=== PATIENT | male | born 1945 | race Caucasian/White ===

== ENCOUNTER 2017-01-05 17:47 | Emergency (ER) | payer MEDICARE ==
--- NOTE | 2017-01-05 18:07 | ED.PDOC ---
History of Present Illness - General Chief Complaint: Abdominal Pain Stated Complaint: n/v,epigastric pain Time Seen by Provider: 01/05/17 18:07 Information Source: patient Exam Limitations: no limitations - History of Present Illness Initial Comments: Diogenes Read 71 y/o male stated that he had episode of nausea /vomiting last Tuesday and stopped but it started again this morning with several episode of vomiting but no diarrhea and aggravated by food intake;he had also achy abdominal pain today went to see his md but was sent here to be further evaluated.Had bowel movement yesterday. No diarrhea ,fever ,SOB,hematemesis or dysuria Abdominal Pain Onset Location: epigastric Pain Radiation: back Quality: aching, steady Timing/Duration: 7-24 hours Improving Factors: nothing Worsening Factors: eating Associated Symptoms: other - see hpi Review of Systems - Review of Systems Constitutional: States: no symptoms reported EENTM: States: no symptoms reported Respiratory: States: no symptoms reported Cardiology: States: no symptoms reported Gastrointestinal/Abdominal: States: see HPI Genitourinary: States: no symptoms reported Past Medical History (General) - Patient Medical History Hx Congestive Heart Failure: No Hx Hypertension: Yes Hx Diabetes: No Hx Other PMH: Yes - hypercholesterolemia,kidney stone Surgical History: other - ORIF right leg - Vaccination History Hx Influenza Vaccination: Yes Hx Pneumococcal Vaccination: Yes - Social History Hx Tobacco Use: No Family Medical History - Family History Father Family History: Unknown Living Status: Unknown Hx Family Cancer: Yes - dad-Hodgkins lymphoma;mom-ovarian cancer Physical Exam - Physical Exam General Appearance: Alert, Comfortable, No apparent distress, Other - not acutely ill Eyes, Ears, Nose, Throat Exam: PERRL/EOMI, normal ENT inspection, pharynx normal Neck: non-tender, supple Respiratory: chest non-tender, lungs clear, normal breath sounds Cardiovascular/Chest: normal peripheral pulses, regular rate, rhythm, no murmur Peripheral Pulses: No deficit Gastrointestinal/Abdominal: normal bowel sounds, non tender, soft Back Exam: no vertebral tenderness Extremity: non-tender, normal inspection Neurologic: no motor/sensory deficits, alert, normal mood/affect, oriented x 3 Progress - Progress Progress: 01/05/17 20:45 Vital Signs - 8 hr 01/05/17 01/05/17 01/05/17 17:59 19:59 20:44 Temperature 98.7 F Pulse Rate [ 59 L 74 80 Left Brachial] Respiratory 20 18 18 Rate Blood Pressure 176/84 158/86 152/80 [Left Arm] O2 Sat by Pulse 93 L 92 L 93 L Oximetry Laboratory Tests 01/05/17 01/05/17 01/05/17 18:00 18:00 18:00 WBC 18.2 H RBC 5.69 Hgb 17.0 Hct 49.6 MCV 87.2 MCH 29.9 MCHC 34.3 RDW 13.1 Plt Count 267 MPV 8.5 Absolute Neuts (auto) 15.20 H Absolute Lymphs (auto) 1.90 Absolute Monos (auto) 1.00 H Absolute Eos (auto) 0.00 Absolute Basos (auto) 0.10 Neutrophils % 83.6 H Lymphocytes % 10.4 L Monocytes % 5.7 Eosinophils % 0.0 L Basophils % 0.3 Sodium 136 Potassium 3.6 Chloride 99 L Carbon Dioxide 26 Anion Gap 14.6 BUN 21 H Creatinine 0.90 BUN/Creatinine Ratio 23.3 H Random Glucose 115 H Serum Osmolality 275.8 Calcium 9.5 Total Bilirubin 3.4 H* AST 19 ALT 17 Alkaline Phosphatase 77 Troponin I < 0.02 Serum Total Protein 7.2 Albumin 4.4 Globulin 2.8 Albumin/Globulin Ratio 1.6 Lipase 16 L 01/05/17 23:00 No Nausea /vomiting since he was in the [facility] for almost 4 hours - EKG/XRAY/CT EKG: Henrry, Sinus Comments: heart rate-57,LAE,LVH XRAY: chest - atelectasis CT Ordered: Yes - abd/p-bibasilar atelectasis,cholelthiasis,nephrolithiasis Departure - Departure Clinical Impression: Bilateral nephrolithiasis Abdominal pain Qualifiers: Abdominal location: epigastric Qualified Code(s): R10.13 - Epigastric pain Cholelithiasis Qualifiers: Cholelithiasis location: gallbladder Cholecystitis presence: without cholecystitis Biliary obstruction: without biliary obstruction Qualified Code(s) : K80.20 - Calculus of gallbladder without cholecystitis without obstruction Nausea & vomiting Qualifiers: Vomiting type: unspecified Vomiting Intractability: non-intractable Qualified Code(s): R11.2 - Nausea with vomiting, unspecified Time of Disposition: 23:04 Disposition: Discharge to Home or Self Care Condition: Fair Departure Forms: ED Discharge - Pt. Copy, Patient Portal Self Enrollment Instructions: Anatomy of a Gallstone, Kidney Stones (Alternative Therapy), Gallstones (Alternative Therapy), Kidney Stones -- Adult, Gallstones, DI for Kidney Stones, DI for Gallstones, DI for Vomiting -- Adult, Nausea and Vomiting- Adult Diet: low fat, low cholesterol Referrals: Ari Medellin MD [Primary Care Provider] - 1-2 Weeks Prescriptions: Ondansetron Odt [Zofran ODT] 8 mg PO Q8HRS PRN #14 tab PRN Reason: Nausea Ranitidine HCl [Acid Marketing Business Analyst] 150 mg PO BID #60 tab Home Medications: Ambulatory Orders Amlodipine Besylate 10 mg PO 0700 01/05/17 Aspirin [Aspirin Low Dose/Adult] 81 mg PO 0700 01/05/17 Gabapentin 300 mg PO TID 01/05/17 Hydrochlorothiazide 25 mg PO 0700 01/05/17 Losartan Potassium [Cozaar] 100 mg PO 0700 01/05/17 Lovastatin 20 mg PO BEDTIME 01/05/17 Metoprolol Succinate [Metoprolol Succinate ER] 25 mg PO 0700 01/05/17 Ondansetron Odt [Zofran ODT] 8 mg PO Q8HRS PRN #14 tab 01/05/17 Ranitidine HCl [Acid Marketing Business Analyst] 150 mg PO BID #60 tab 01/05/17 Additional Instructions: RETURN TO EMERGENCY ROOM NEEDED;AVOID GREASY SPICY FOODS;Follow up with primary md 01/10/2017 call for appointment
[2017-01-05] MEDS ORDERED: SODIUM CHLORIDE 0.9% 500ML 500 ML IVS ONE ×2 (18:08→20:33)
--- NOTE | 2017-01-05 18:30 | RAD ---
EXAM: Chest,1 View CLINICAL INDICATION: 71-year-old male with pain. TECHNIQUE: Single view, AP portable chest was obtained. COMPARISON: None. FINDINGS: Stable cardiac and mediastinal silhouette. Heart size is top normal. Tortuous thoracic aorta. Low lung volumes with patchy airspace opacification of the RIGHT lower lobe may be secondary to subsegmental atelectasis or consolidation. No gross pneumothoraces or large pleural effusion. Trace pleural effusion cannot be excluded. The visualized bones reveal degenerative change. IMPRESSION: Patchy opacification of the RIGHT lower lobe may be secondary to low lung volumes and subsegmental atelectasis versus consolidation. Please correlate with patient clinical findings and follow-up for resolution.. Electronically signed by: Dixie Posadas MD 01/05/2017 6:29 PM CDT Workstation: [id number]
--- NOTE | 2017-01-05 21:31 | CT ---
EXAM DESCRIPTION: Abdoment/Pelvis w/o Contrast CLINICAL HISTORY: 71 years Male, pain COMPARISON: None. TECHNIQUE: Contiguous axial CT images of the abdomen and pelvis were acquired without administration of intravenous contrast. Coronal and sagittal reformatted images are provided. This exam was performed according to our departmental dose-optimization program which includes use of Automated Exposure Control, adjustment of the mA and/or kV according to patient size and/or use of iterative reconstruction technique. FINDINGS: Chest base: Bibasilar atelectasis. Coronary artery calcifications. Liver: Unremarkable. Gallbladder: Multiple layering gallstones. Spleen: Small calcified granuloma within the spleen. Adrenals: Unremarkable. Pancreas: Unremarkable. Right Kidney: Right upper pole 3.4 cm cystic lesion, slightly high in attenuation measuring 16 Hounsfield units. Left Kidney: Left lower pole nonobstructing renal stone measuring 4 mm. No hydronephrosis. Small renal cyst medially. Aorta and branch vessels: Mild calcific atherosclerosis of the aortoiliac vessels. Lymph nodes: No lymphadenopathy. Bowels: No obstruction. Colon: Scattered colonic diverticula. Appendix: Normal. Peritoneum: No free air or free fluid. Pelvic organs: Mildly enlarged prostate with coarse calcifications. Bladder: The base of the bladder is mildly impressed upon by the prostate. The bladder is otherwise unremarkable. Bones and soft tissues: No acute osseous or soft tissue abnormalities. Right proximal femur prior ORIF. IMPRESSION: 4 mm left lower pole nonobstructing renal stone. Cholelithiasis. Mildly enlarged prostate impressing upon the base of the bladder. Right upper pole 3.4 cm slightly high attenuation cyst or cystic lesion. Consider outpatient ultrasound for further characterization. Electronically signed by: Ari Rankin MD 01/05/2017 9:30 PM CDT
[2017-01-05] MEDS ORDERED: amLODIPine BESYLATE 5 MG TAB PO ONE (22:45)
[2017-01-05] MEDS ORDERED: METOPROLOL SUCCINATE XL 25 MG TAB PO ONE (22:45)
[2017-01-05] MEDS ORDERED: PANTOPRAZOLE INJECTION 80 MG in SODIUM CHLORIDE 0.9% 100ML 80 ML IVPB ONE (22:59)
[2017-01-05] MEDS ORDERED: ONDANSETRON ODT (ER DISP) 8 MG TAB PO ONE (22:59)
[2017-01-05] MEDS ORDERED: LOSARTAN POTASSIUM 25 MG TAB PO ONE (22:59)
[2017-01-05] MEDS ORDERED: PANTOPRAZOLE SODIUM IV 40 MG VIAL ONE (23:04)
[2017-01-05] MEDS ORDERED: SODIUM CHLORIDE 0.9% 100ML 100 ML IVPB ONE (23:04)
[2017-01-05 23:35] VITALS: BP 185/85; TEMP 98.4; O2SAT 91
[2017-01-06] MEDS ORDERED: LOSARTAN POTASSIUM 25 MG TAB PO SCH (09:00)
== END 2017-01-05 23:35 | disposition home or self-care (01) ==
LOC: ER 17:47
DX: K80.20 Calculus of gallbladder without cholecystitis without obstruction (principal); R11.2 Nausea with vomiting, unspecified; J98.11 Atelectasis; I10 Essential (primary) hypertension; N20.0 Calculus of kidney
CPT/HCPCS: 36415; 71010; 74176; 80053; 81001; 83690; 84484; 85025; 93005; J7040; J7050

== ENCOUNTER 2017-04-12 12:59 | Observation (INO) | payer MEDICARE ==
--- NOTE | 2017-04-12 13:16 | ED.PDOC ---
History of Present Illness - General Chief Complaint: GI Problem Stated Complaint: vomiting Time Seen by Provider: 04/12/17 13:09 Source: patient Exam Limitations: no limitations - History of Present Illness Initial Comments: Diogenes Godinez 72 y/o male brought by with nausea vomiting for the last 3 days and unable to take anything latrice.Had 2 episodes of vomiting today with loss of appetite.No diarrhea had normal bm today but still could not get anything down.Had no fever/or chills Timing/Duration: intermittent, other - 3 days Severity: moderate Improving Factors: nothing Worsening Factors: nothing Associated Symptoms: nausea/vomiting - see hpi, other Allergies/Adverse Reactions: Allergies NO KNOWN ALLERGY Allergy (Verified 04/12/17 13:18) Home Medications: Ambulatory Orders Amlodipine Besylate 10 mg PO 0700 01/05/17 Aspirin [Aspirin Low Dose/Adult] 81 mg PO 0700 01/05/17 Gabapentin 300 mg PO TID 01/05/17 Hydrochlorothiazide 25 mg PO 0700 01/05/17 Losartan Potassium [Cozaar] 100 mg PO 0700 01/05/17 Lovastatin 20 mg PO BEDTIME 01/05/17 Metoprolol Succinate [Metoprolol Succinate ER] 25 mg PO 0700 01/05/17 Ondansetron Odt [Zofran ODT] 8 mg PO Q8HRS PRN #14 tab 01/05/17 Ranitidine HCl [Acid Hotel Front Office Manager] 150 mg PO BID #60 tab 01/05/17 Review of Systems - Review of Systems Constitutional: States: no symptoms reported EENTM: States: no symptoms reported Respiratory: States: no symptoms reported Cardiology: States: no symptoms reported Gastrointestinal/Abdominal: States: see HPI, vomiting Genitourinary: States: no symptoms reported Musculoskeletal: States: no symptoms reported Skin: States: no symptoms reported Neurological: States: no symptoms reported All other Systems: Reviewed and Negative, No Change from Baseline Past Medical History (General) - Patient Medical History Hx Hypertension: Yes Hx Other PMH: Yes - cholelithiasis,nephrolithiasis Surgical History: other - orif-right leg - Social History Hx Physical Abuse: No Hx Emotional Abuse: No Hx Suspected Abuse: No - Activities of Daily Living Patient Lives Alone: No - Family Medical History - Family History Mother Family History: Unknown Hx Family Cancer: Yes - dad-hodgkins;mom-ovarian Physical Exam - Physical Exam General Appearance: Alert, Comfortable, No apparent distress Eye Exam: bilateral normal Ears, Nose, Throat: hearing grossly normal, normal ENT inspection, normal pharynx Neck: non-tender, full range of motion, supple Respiratory: chest non-tender, lungs clear, normal breath sounds Cardiovascular/Chest: normal peripheral pulses, regular rate, rhythm, no murmur Gastrointestinal/Abdominal: normal bowel sounds, non tender, soft, no organomegaly Back Exam: normal inspection, no CVA tenderness, no vertebral tenderness Extremity: normal range of motion, non-tender, normal inspection, no pedal edema , no calf tenderness Neurologic: no motor/sensory deficits, alert, normal mood/affect, oriented x 3 Skin Exam: normal color, warm/dry Progress - Progress Progress: 04/12/17 13:41 Last Vital Signs Temp 98.8 F 04/12/17 13:09 Pulse 79 04/12/17 13:09 Resp 18 04/12/17 13:09 BP 152/80 04/12/17 13:09 Pulse Ox 91 L 04/12/17 13:09 - Results/Orders Results/Orders: Laboratory Tests 04/12/17 04/12/17 04/12/17 13:30 13:30 13:48 WBC 13.5 H RBC 5.56 Hgb 16.5 Hct 48.4 MCV 87.2 MCH 29.8 MCHC 34.2 RDW 13.7 Plt Count 254 MPV 9.0 Absolute Neuts (auto) 10.60 H Absolute Lymphs (auto) 1.80 Absolute Monos (auto) 0.90 H Absolute Eos (auto) 0.00 Absolute Basos (auto) 0.10 Neutrophils % 78.9 H Lymphocytes % 13.4 L Monocytes % 6.8 Eosinophils % 0.3 L Basophils % 0.6 PT 11.7 INR 1.040 PTT (SP) 24.6 L Sodium 142 Potassium 3.4 L Chloride 100 L Carbon Dioxide 30 Anion Gap 15.4 BUN 36 H Creatinine 1.18 BUN/Creatinine Ratio 30.5 H Random Glucose 124 H Serum Osmolality 292.9 Calcium 9.6 Magnesium 2.1 Total Bilirubin 3.5 H* Direct Bilirubin 0.4 H Indirect Bilirubin 3.1 H AST 23 ALT 20 Alkaline Phosphatase 77 Creatine Kinase 96 CK-MB (CK-2) 2.3 CK-MB (CK-2) % Not Reportable Troponin I < 0.02 Serum Total Protein 7.0 Albumin 4.1 Lipase 22 Urine Color Yellow Urine Appearance Clear Urine pH 5.0 Ur Specific [place] >= 1.030 Urine Protein 30 Urine Glucose (UA) Negative Urine Ketones Trace Urine Blood Small H Urine Nitrite Negative Urine Bilirubin Moderate Urine Urobilinogen 0.2 Ur Leukocyte Esterase Negative Urine RBC 0 Urine WBC 0 Ur Epithelial Cells 1-3 Urine Bacteria Rare Urine Mucus Moderate - EKG/XRAY/CT Xray Comments: GB SONO-cholelithiasis,steatohepatitis Departure - Departure Clinical Impression: Dehydration Nausea & vomiting Qualifiers: Vomiting type: unspecified Vomiting Intractability: unspecified Qualified Code( s): R11.2 - Nausea with vomiting, unspecified Cholelithiasis Qualifiers: Cholelithiasis location: gallbladder Cholecystitis presence: without cholecystitis Biliary obstruction: without biliary obstruction Qualified Code(s) : K80.20 - Calculus of gallbladder without cholecystitis without obstruction Time of Disposition: 15:26 Disposition: Admit Patient Condition: Good Home Medications: Ambulatory Orders Amlodipine Besylate 10 mg PO 0700 01/05/17 Aspirin [Aspirin Low Dose/Adult] 81 mg PO 0700 01/05/17 Gabapentin 300 mg PO TID 01/05/17 Hydrochlorothiazide 25 mg PO 0700 01/05/17 Losartan Potassium [Cozaar] 100 mg PO 0700 01/05/17 Lovastatin 20 mg PO BEDTIME 01/05/17 Metoprolol Succinate [Metoprolol Succinate ER] 25 mg PO 0700 01/05/17 Ondansetron Odt [Zofran ODT] 8 mg PO Q8HRS PRN #14 tab 01/05/17 Ranitidine HCl [Acid Hotel Front Office Manager] 150 mg PO BID #60 tab 01/05/17 Decision To Admit - Decistion To Admit Decision to Admit Reason: Admit from ER Decision to Admit Date: 04/12/17 - D/W Dr. Vanessa -Hospitalist for admit Decision to Admit Time: 15:26
[2017-04-12] MEDS ORDERED: LACTATED RINGERS 1,000 ML IVS ONE (13:24)
[2017-04-12] MEDS ORDERED: PROMETHAZINE HCL INJ 25 MG/ML VIAL IM ONE (13:26)
--- NOTE | 2017-04-12 14:07 | RAD ---
Study: Single Frontal View of the Chest. Indication:N/V Comparison: January 05, 2017. Impression: Heart size upper limits of normal without failure. Mild basilar atelectasis, otherwise lungs clear. No pneumothorax. No acute osseous abnormality. Electronically signed by: Jeferson Yan MD 04/12/2017 2:05 PM [facility]
--- NOTE | 2017-04-12 14:23 | US ---
Study: Right upper quadrant abdominal ultrasound. Indication: gallstone Technical: Multiplanar, grayscale sonogram of the right upper quadrant of the abdomen obtained. Comparison: CT January 05, 2017. Findings: The liver is diffusely increased in echogenicity consistent with hepatic steatosis. The liver measures 14.9 cm in length. No discrete live mass. Multiple mobile shadowing gallstones measuring up to 6 mm. No gallbladder wall thickening or pericholecystic edema. The common bile duct measures 4.6 mm in diameter. No intrahepatic biliary ductal dilatation. Several right renal cysts noted. The visualized portions of the aorta and inferior vena cava are normal. The pancreas is not optimally characterized secondary to shadowing bowel gas. Impression: Cholelithiasis. Hepatic steatosis. Electronically signed by: Jeferson Yan MD 04/12/2017 2:22 PM [facility]
--- NOTE | 2017-04-12 15:20 | HP ---
HISTORY OF PRESENT ILLNESS: This 72 year-old white male is placed in the hospital from the Emergency Room because of protracted and severe nausea and vomiting with associated dehydration and abdominal pain for the last two days. This apparently is his 4th episode of similar symptoms but one of the worse episodes yet. He has been diagnosed with gallbladder stones in the past, most recently in December of this past year. He has seen Dr. Hargrove in the past for possible removal of the gallbladder but while doing cardiac update in order to rule out any underlying cardiac disease he ran out of an opportunity to have the procedure done which has still been postponed. He admits to fatty food intolerance. A few days ago he was actually eating a fatty [place] food at a [employer] restaurant and had severe discomfort in his upper abdomen. He also describes some discomfort over to the left upper quadrant that appears to be onto a rib joint. This current episode of nausea and vomiting was protracted since two days before and was associated with hiccups that tended to make the symptoms even worse. He was placed in the hospital for IV hydration because of the significant dehydrated state and response of his body to the underlying problem with elevated bilirubin, increased BUN, elevated WBCs as well as a low potassium, probably related to some of his Hydrochlorothiazide medications. PAST MEDICAL HISTORY: 1. Hypertension. 2. Elevated cholesterol. PAST SURGICAL HISTORY: 1. Leg with broken bone in his right femur. CURRENT MEDICATIONS: Please refer to nurses note for list of verified home medications. ALLERGIES: Ondansetron. FAMILY HISTORY: Positive for cancer and strokes. 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 REVIEW OF SYSTEMS: GENERAL: He has lost about 6 to 7 pounds in the last couple of days. No fever or chills. HEENT: Hearing and vision appears to be fairly normal. LUNGS: He has some shortness of breath on exertion. CARDIOVASCULAR: Some lower left rib pain is noted. No palpitations. GI: Appetite is gone, not eating anything for two days. Severe nausea and vomiting evident and some diarrhea stools. No blood in the stools or the emesis. : No discomfort on urination. EXTREMITIES: Fairly well formed and fairly good range of motion. NEUROLOGICAL: No significant headaches or focal weakness. PHYSICAL EXAMINATION: VITAL SIGNS: Afebrile, pulse 67, blood pressure 160/79, pulse oximetry 92% on room air. Weight was determined to be 90.7 kilos versus 87.3 kilos on two different scales. GENERAL: The patient is awake and alert. He has now received one liter of lactated ringers which has helped him to feel a little bit better but he will require some more overnight to be slowly given. HEENT: Within normal limits. CHEST: Lungs are generally clear to auscultation. CARDIOVASCULAR: Heart tones are regular without any significant gallops or murmurs. ABDOMEN: Diminished bowel tones. Some slight tenderness in the epigastrium. No rebound tenderness. No organomegaly evident. Some tenderness noted over on the lateral costochondral joint of the anterior ribcage, lowest ribs on palpation. No deformities. EXTREMITIES: Fairly well formed. No significant edema. NEUROLOGIC: No focal neurological deficits and the patient is awake, alert, and oriented and communicative. is present to assist with the history. LABORATORY: White count is elevated at 13,500. Hemoglobin 16.5, INR 1.04. Chemistry shows sodium 142, potassium 3.4. BUN elevated at 39, creatinine 1.18 , glucose 124. Lactic acid normal at 1.7. Calcium normal at 1.6. Bilirubin elevated at 3.5 and was elevated before with a previous gallbladder attack. Indirect bilirubin of 3.1. Liver enzymes otherwise normal. Troponin 0. Albumin 4.1, lipase 22. Urinalysis shows hematuria, small. No cultures obtained. Gallbladder ultrasound revealed gallbladder stones with no evidence of an acute cholecystitis with thickened wall of the gallbladder or fluid pericolic. Chest x-ray shows no acute findings. ASSESSMENT: 1. Chronic cholelithiasis with an acute exacerbation without evidence of significant cholecystitis at this time. 2. Significant nausea and vomiting contributing to a significant dehydrated state probably secondary to the underlying gallbladder disease mentioned in #1. 3. Hypokalemia probably related to the Hydrochlorothiazide medications used for blood pressure. 4. Hypertension on multiple blood pressure medications. 5. Elevated BUN probably secondary from prerenal azotemia. 6. Dehydration contributing to the above. 7, Leukocytosis probably secondary to the significant stress of vomiting and pain of acute gallbladder. 8. Hyperbilirubinemia with a repeat episode from previous gallbladder disease possibly from stress versus Gilbert's presentation. PLAN: Will continue with potassium supplementation. Give some D5 and half normal with potassium with some fluid overnight and observe closely. Continue with the Phenergan p.r.n. nausea. Try clear liquid diet tonight. Go to full liquids in the morning if tolerated. Repeat evaluation and if stable, will continue with outpatient therapy in the morning. #[id number] MTDD
[2017-04-12] MEDS ORDERED: SODIUM CHLORIDE 0.9% (FLUSH) 10 ML SYG IV PRN (18:52)
[2017-04-12] MEDS ORDERED: MORPHINE SULFATE INJ 10 MG/ML VIAL IV PRN (18:54)
[2017-04-12] MEDS ORDERED: ONDANSETRON INJ 4 MG/2 ML VIAL IV PRN (18:54)
[2017-04-12] MEDS ORDERED: LEVALBUTEROL NEBS 1.25 MG/3 ML VIAL NEB PRN (18:54)
[2017-04-12] MEDS ORDERED: MAGNESIUM HYDROXIDE 30 ML UD PO PRN (18:54)
[2017-04-12] MEDS ORDERED: PROMETHAZINE HCL INJ 12.5 MG in SODIUM CHLORIDE 0.9% 50ML 50 ML IVPB PRN (18:58)
[2017-04-12] MEDS ORDERED: IV SET AND CAP CHANGE INJ INJ SCH (19:00)
[2017-04-12] MEDS ORDERED: DICYCLOMINE HCL 20 MG TAB PO PRN (19:01)
[2017-04-12] MEDS: KCL 20MEQ/D5 1/2NS 1,000 ML IVS PRN (19:55)
[2017-04-12] MEDS ORDERED: MELATONIN 3 MG TAB PO SCH (21:00)
[2017-04-13] MEDS ORDERED: amLODIPine BESYLATE 5 MG TAB ONE (04:59)
[2017-04-13] MEDS: KCL 20MEQ/D5 1/2NS 1,000 ML IVS PRN (05:28)
[2017-04-13] MEDS ORDERED: OMEPRAZOLE CAP 20 MG CAP PO SCH (06:30)
[2017-04-13] MEDS ORDERED: LOSARTAN POTASSIUM 100 MG TAB PO SCH (07:00)
[2017-04-13] MEDS ORDERED: NON-FORMULARY MEDICATION 1 EA MIS (Amlodipine Besylate [Amlodipine Besylate] 10 MG) PO SCH (07:00)
[2017-04-13] MEDS ORDERED: ASPIRIN (CHEWABLE) 81 MG TAB PO SCH (07:00)
[2017-04-13 09:13] VITALS: BP 138/80; TEMP 96.8; O2SAT 92
--- NOTE | 2017-04-13 10:54 | DS ---
DISCHARGE DIAGNOSIS: 1. Chronic cholelithiasis with an acute exacerbation without evidence of significant cholecystitis at this time. 2. Significant nausea and vomiting lasting for several days, contributing to a dehydrated state secondary to the underlying gallbladder disease. 3. Hypokalemia, probably related to the hydrochlorothiazide with supplementation started and hydrochlorothiazide reduced in dosage. 4. History of hypertension on multiple blood pressure medications. 5. Elevated BUN, probably secondary from prerenal azotemia associated with the dehydrated state, showing improvement. 6. Significant dehydration, requiring parenteral fluid supplementation. 7. Initial leukocytosis, showing improvement. 8. Hyperbilirubinemia, recurrent, seemingly associated with the chronic gallbladder disease versus Gilbert's presentation. 9. New onset right bundle branch block. HISTORY OF PRESENT ILLNESS: This 72-year-old white male was placed in the hospital from the Emergency Room for overnight observation because of protracted nausea and vomiting. In the Emergency Room, he received some IV fluids, but was still not feeling well enough to be returned home and will require some additional fluid resuscitation overnight to be slowly infused. He eventually will require outpatient followup and decisions regarding the proper treatment of the gallbladder to be discussed with Dr. Medellin and Dr. Hargrove in the clinic. This apparently is his fourth episode of fairly significant abdominal pain with nausea as it relates to a diagnosis of gallstones present. Fatty food intolerance has been noted. LABORATORY: Initial white count 13,500, decreasing to 6,900. Hemoglobin down to 14.3. INR 1.04. Chemistry shows potassium dropping from 3.4 to 3.2 with supplement started. BUN decreased from 36 to 25 as hydration showed some improvement. Glucose 109. Lactic acid normal at 1.7. Bilirubin decreased from 3.5 to 2.7 while liver enzymes remained normal otherwise. Albumin 3.4, lipase normal at 22. Urinalysis showed small amount of hematuria. No cultures obtained. RADIOLOGY: Chest films showing no acute abnormalities. Gallbladder ultrasound revealed multiple gallstones with no evidence of significant cholecystitis or choledochal dilatation. HOSPITAL COURSE: The patient was tolerating initially clear liquids and then full liquids before returning home on the morning of discharge. He was feeling much improved. He was able to ambulate and carry on activities. He was ready for continued outpatient followup at the time of his discharge. PLAN: The patient is encouraged to see Dr. Medellin the first of next week, at which point Dr. Medellin can arrange for a visit with Dr. Hargrove for surgical consultation. He has seen Dr. Hargrove before, but was unable to do the surgery because of a prolonged cardiac evaluation process before surgery could be completed. He will be started on a low fat diet per Dr. Hargrove's instruction. Drink plenty of fluids. Dr. Medellin is to receive a copy of the EKG done in the hospital for his records. See the home medication list and note the decreased dosing of the hydrochlorothiazide and the potassium supplement and Phenergan as needed for nausea. Return if not improving. #[id number] [facility]
[2017-04-14] MEDS ORDERED: amLODIPine BESYLATE 5 MG TAB PO SCH (07:00)
== END 2017-04-13 11:52 | disposition home or self-care (01) ==
LOC: ER 12:59 → INTOOBSV 15:19 → MS 15:19
PROVIDERS: ADMIT Emergency Medicine; ATTEND Emergency Medicine
DX: K80.20 Calculus of gallbladder without cholecystitis without obstruction (principal); E86.0 Dehydration; E87.6 Hypokalemia; I10 Essential (primary) hypertension; R79.89 Other specified abnormal findings of blood chemistry; D72.829 Elevated white blood cell count, unspecified; E80.6 Other disorders of bilirubin metabolism; I45.10 Unspecified right bundle-branch block; E78.00 Pure hypercholesterolemia, unspecified; K76.0 Fatty (change of) liver, not elsewhere classified; Z79.82 Long term (current) use of aspirin; Z79.899 Other long term (current) drug therapy; Z88.8 Allergy status to other drugs, medicaments and biological substances
CPT/HCPCS: 36415 ×4; 71045; 76705; 80048; 80053; 80076; 81001; 82550; 82553; 83605; 83690; 84484; 85025 ×2; 85610; 85730; 93005; 94760 ×2; 96361; 96372; 96374; 96376; 99284; G0378; J2550; J7120

== ENCOUNTER 2017-04-21 05:51 | Day surgery (SDC) | payer MEDICARE ==
[2017-04-21] MEDS ORDERED: LACTATED RINGERS 1,000 ML ONE (06:53)
[2017-04-21] MEDS ORDERED: SODIUM CHL 0.9% 100ML MINI-BAG 100 ML IVPB ONE (06:55)
[2017-04-21] MEDS ORDERED: ceFAZolin SODIUM 1 GM VIAL ONE (06:55)
[2017-04-21] MEDS ORDERED: ePHEDrine SULF 50 MG/ML ONE (07:00)
[2017-04-21] MEDS ORDERED: DEXAMETHASONE INJ 10 MG/ML VIAL ONE (07:00)
[2017-04-21] MEDS ORDERED: LIDOCAINE 1% 10 ML VIAL INJ ONE (07:00)
[2017-04-21] MEDS ORDERED: ATROPINE SULFATE 0.4 MG/ML 1ML VIAL ONE (07:00)
[2017-04-21] MEDS ORDERED: METOCLOPRAMIDE HCL INJ 10 MG/2 ML VIAL ONE (07:00)
[2017-04-21] MEDS ORDERED: NEOSTIGMINE METHYLSULFATE 1 MG/ML ML IV ONE (07:00)
[2017-04-21] MEDS ORDERED: PROPOFOL 200 MG/20 ML VIAL IV ONE (07:00)
[2017-04-21] MEDS ORDERED: BUPIVACAINE 0.25% W/EPI 50 ML VIAL INJ ONE (07:08)
[2017-04-21] MEDS ORDERED: HEPARIN SODIUM (PORCINE) 10,000 UNITS/ML VIAL ONE (07:09)
[2017-04-21] MEDS ORDERED: LIDOCAINE 2 % GEL 5 ML TUBE TOP ONE (07:40)
[2017-04-21] MEDS ORDERED: fentaNYL CITRATE INJ 50 MCG/ML AMP ONE (07:40)
[2017-04-21] MEDS ORDERED: ROCURONIUM BROMIDE 10 MG/ML VIAL ONE (07:40)
--- NOTE | 2017-04-21 11:45 | OP ---
DATE OF PROCEDURE: 04/21/17 PREOPERATIVE DIAGNOSIS: 1. Symptomatic cholelithiasis. 2. Fatty infiltration of the liver. POSTOPERATIVE DIAGNOSIS: 1. Symptomatic cholelithiasis. 2. Fatty infiltration of the liver. 3. Chronic cholecystitis. PROCEDURE: 1. Laparoscopic cholecystectomy with intraoperative cholangiography using fluoroscopy. 2. Wedge biopsy, right lobe of liver. SURGEON: Keshawn Hargrove MD. ONLINE MERCHANDISER: None. ANESTHESIA: Local infiltration of 0.25% Marcaine with epinephrine and general endotracheal anesthesia. INDICATION: The patient is a 72-year-old male who recently had an attack of right upper quadrant pain and was found to have gallstones, a question of fatty infiltration of the liver on radiologic examination. He underwent a cardiac evaluation as an outpatient and was cleared. The patient was brought to the Surgical Suite today for cholecystectomy and wedge biopsy of the liver after the risks, benefits and alternatives to the procedure were discussed and accepted. FINDINGS: The gallbladder wall was thickened. Intraoperative cholangiography revealed no strictures, filling defects or dilation of the bile duct. There was free flow into the duodenum. Otherwise, there was no other pathology identified. The liver did appear to have some fatty infiltration of the liver and pathology is pending. DESCRIPTION OF PROCEDURE: After adequate general endotracheal anesthesia was obtained and the patient had received his preoperative antibiotics, he was prepped and draped in the usual sterile manner. Surgical time-out was taken. The infraumbilical area was infiltrated with local anesthesia. A curvilinear incision was fashioned and carried down through the subcutaneous tissue to the midline fascia. Traction sutures were placed on either side of the midline. A small incision was made in the midline fascia and the peritoneum was opened bluntly. Jose Francisco trocar was introduced under direct vision into the abdominal cavity and fixed in place with the 20 mL balloon. CO2 was then insufflated until a pressure of 12 mmHg was reached and the abdomen was tympanitic in all four quadrants. When this was done, the laparoscope was introduced. The abdomen was inspected with the previously noted findings. The patient was then placed in reverse Trendelenburg position, turned to the left side. The upper abdominal ports were placed under direct vision in the usual manner. The gallbladder was grasped, retracted anteriorly and laterally. The neck of the gallbladder was retracted laterally. The triangle of Calot was then explored with the cystic duct and two arterial branches were identified. The cystic duct was hemoclipped once proximally. The arteries were clipped twice proximally also. A small incision was made in the cystic duct. The cholangiogram catheter was introduced through a separate stab wound in the right upper quadrant, introduced into the cystic duct and clipped in place. Cholangiograms were then taken using fluoroscopy which revealed free flow into the duodenum with no filling defects or strictures noted. When this was done, the cystic duct catheter was removed. The cystic duct was hemoclipped three times distally and divided between the hemoclips. The arteries were divided. The gallbladder was then dissected free from the gallbladder bed of the liver using electrocautery. There was some leakage of bile. When the gallbladder was dissected free from the gallbladder bed of the liver, it was placed in an EndoCatch bag and removed from the infraumbilical port site in the usual manner under direct vision. When this was done, the subhepatic space and subphrenic space were irrigated copiously with saline. The effluent was noted to be clear with some debris of stones which was completely irrigated and aspirated. When this was done, the gallbladder bed of the liver was inspected and there was a small amount of oozing. Cautery was turned up to 50 and this was controlled easily. When this had been done, hemostasis was noted to be adequate. At this point, a wedge biopsy of the right lobe of the liver was performed with the Endoshears. The specimen was removed from the infraumbilical port site and hemostasis was obtained using electrocautery again turned up to 50. When this was done, again, the subhepatic space and subphrenic space were irrigated copiously with saline. The effluent was noted to be clear. There was no bleeding noted in the gallbladder bed of the liver or at the biopsy site. The tonie hepatis was inspected and no bleeding or bile leak was identified. The upper abdominal ports were removed under direct vision and good hemostasis was noted. At this point, the CO2, the laparoscope and the infraumbilical port were removed. The infraumbilical port site fascia was approximated with a single [id number] suture of 0 Vicryl. Subcutaneous tissue was irrigated with saline. Skin edges were approximated with 4-0 Vicryl subcuticular sutures, benzoin and Steri-Strips. Sterile dressings were applied. The patient was awakened and taken to the Recovery Room in good and stable condition. Estimated blood loss was approximately than 50 mL. All sponge, needle and instrument counts were correct. #[id number] [facility]
[2017-04-21] MEDS ORDERED: HYDROcodone 5MG/APAP 325MG 1 EA TAB ONE (12:39)
[2017-04-21 13:29] VITALS: BP 120/68; TEMP 97; O2SAT 93
== END 2017-04-21 14:05 | disposition home or self-care (01) ==
LOC: AMB 05:51
PROVIDERS: ATTEND Surgery
DX: K80.10 Calculus of gallbladder with chronic cholecystitis without obstruction (principal); K76.0 Fatty (change of) liver, not elsewhere classified; I11.0 Hypertensive heart disease with heart failure; I50.9 Heart failure, unspecified; K21.9 Gastro-esophageal reflux disease without esophagitis; E66.9 Obesity, unspecified; F43.10 Post-traumatic stress disorder, unspecified; E78.2 Mixed hyperlipidemia; Z87.442 Personal history of urinary calculi; Z68.29 Body mass index [BMI] 29.0-29.9, adult; I45.10 Unspecified right bundle-branch block; Z88.8 Allergy status to other drugs, medicaments and biological substances; Z79.82 Long term (current) use of aspirin; Z79.899 Other long term (current) drug therapy
CPT/HCPCS: 00790; 36415; 47379; 47563; 76000; 80053; 81001; 85025; 88304; 88307; 88313; J0690; J1100; J1644; J2710; J2765; J3010; J3490; J7050; J7120

== ENCOUNTER → 2017-06-16 | Outpatient (CLI) | payer MEDICARE ==
--- NOTE | 2017-06-16 18:08 | US ---
EXAM DESCRIPTION: Carotid Duplex CLINICAL HISTORY: BRUIT COMPARISON: None Available. TECHNIQUE: Bilateral carotid duplex examination with grayscale, color Doppler, and spectral pulse Doppler evaluation. FINDINGS: On the right, mild intimal thickening is present. Peak right common carotid artery velocities are 77/11 cm/s with peak ICA velocities of 60/5 cm/s. Antegrade flow in the external carotid artery and vertebral artery is demonstrated in the ICA/CCA ratio is normal at 0.8 On the left, peak CCA velocities are 89/18 cm/s and peak ICA velocities 69/12 cm/s with an ICA/CCA ratio normal at 0.8. Antegrade flow in the external carotid artery and vertebral is demonstrated. IMPRESSION: Minimal atherosclerosis with no hemodynamically significant stenosis either carotid system. Antegrade flow both vertebral arteries. Electronically signed by: Neto Pratt MD 06/16/2017 6:06 PM CDT
== END | disposition home or self-care (01) ==
LOC: US 13:51
PROVIDERS: ATTEND Family Medicine
DX: I65.23 Occlusion and stenosis of bilateral carotid arteries (principal)

== ENCOUNTER → 2017-08-15 | Outpatient (CLI) | payer MEDICARE | LOC: GMALS 14:08 | PROVIDERS: ATTEND Nurse Practitioner Acute Care | DX: N30.00 Acute cystitis without hematuria (principal) ==

== ENCOUNTER → 2018-01-10 | Outpatient (CLI) | payer MEDICARE | LOC: GMAJ 12:03 | PROVIDERS: ATTEND Family Medicine | DX: Z12.5 Encounter for screening for malignant neoplasm of prostate (principal) ==

== ENCOUNTER → 2019-03-22 | Outpatient (CLI) | payer MEDICARE | LOC: GMAJ 10:33 | PROVIDERS: ATTEND Family Medicine | DX: Z12.5 Encounter for screening for malignant neoplasm of prostate (principal); I10 Essential (primary) hypertension; E78.00 Pure hypercholesterolemia, unspecified ==